=== PATIENT | male | born 2000 | race African-American/Black ===

== ENCOUNTER 2022-04-24 17:08 | Emergency (ER) | payer OTHER ==
[~2022-04-24 17:08] MED LIST: AMOXICILLIN500 MG PO; IBUPROFEN800 MG PO
[2022-04-24 19:02] LABS: BASOPHIL 0.1 % (0-2); HCT 46.1 % (42.0-52.0); HGB 15.6 g/dl (13.2-18.0); MCHC 33.8 g/dL (32.0-36.0); MCV 91.5 fL (78.0-100.0); MONOCYTE 7.6 % (0-12); NEUTROPHIL 49.1 % (41-80); NRBC 0; PLT 266 K/uL (150-400); RBC 5.04 M/uL (4.70-6.00); RDW 12.7 % (11.5-14.0)
[2022-04-24 19:23] LABS: BUN/CREAT RATIO (CALC) 15.8 RATIO; CREATININE 0.76 mg/dL (0.67-1.17); POTASSIUM 3.3 mmol/L (3.5-5.1)
== END 2022-04-24 23:45 | disposition home or self-care (01) ==
LOC: FER 17:08
PROVIDERS: Emergency Medicine
DX: R07.89 Other chest pain (principal); R51.9 Headache, unspecified; F17.210 Nicotine dependence, cigarettes, uncomplicated; Z20.822 Contact with and (suspected) exposure to COVID-19; Z28.310 Unvaccinated for COVID-19
CPT/HCPCS: 36415; 71045; 80048; 84484; 85025; 85379; 93005